=== PATIENT | female | born 2000 | race American Indian/Alaskan Native ===

== ENCOUNTER 2020-12-02 13:44 | Outpatient (CLI) | payer OTHER ==
[2020-12-02] MEDS ORDERED: LACTATED RINGERS 1,000 ML IV ONE (14:35)
[2020-12-02 15:05] LABS: Bacteria,Urine 3+ /HPF (Negative); Bilirubin,Urine NEG (Negative); Blood,Urine NEG (Negative); Color,Urine Yellow (Yellow); Protein,Urine <15 mg/dL mg/dL (Negative); Urobilinogen,Urine < 2.0 mg/dL (<2.0)
[2020-12-02 15:24] LABS: Alanine Aminotransferase 12 units/L (7-56); Uric Acid 2.9 mg/dL (3.5-7.6)
[2020-12-02 15:31] LABS: Hematocrit 32.5 % (30.3-42.9); Hemoglobin 11.2 gm/dl (10.1-14.3); Mean Corpuscular HGB Conc 35 % (30-34); Mean Corpuscular Volume 87 fl (79-97); Platelet Count 272 K/mm3 (140-440); Red Blood Count 3.72 M/mm3 (3.65-5.03); Red Cell Distribution Width 14.3 % (13.2-15.2)
[2020-12-02 16:32] VITALS: BP 148/67
--- NOTE | 2020-12-03 06:04 | Event Note ---
Date: 12/02/20 (late entry) Pt presented with c/o just feeling off. 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 She states she just felt "off" @ work. VSS No evidence UTI Prolong monitoring Cat 1 strip No ctx. Spoke with pt for extended time about healthy work habits: getting up Q2h, voiding, walk around, have water. Pt voiced understanding. She did not voice stopping work. Pt has an appt in our office Tuesday for routine OB visit. All concerns addressed. Pt d/c home in good condition.
== END 2020-12-02 17:00 | disposition home or self-care (01) ==
LOC: TRG 13:44 → APU 13:44 → TRG 17:00
PROVIDERS: ATTEND Obstetrics & Gynecology
DX: O26.893 Other specified pregnancy related conditions, third trimester (principal); R42 Dizziness and giddiness; R10.9 Unspecified abdominal pain; Z3A.31 31 weeks gestation of pregnancy
CPT/HCPCS: 36415; 59025; 81001; 82565; 83615; 84450; 84460; 84550; 85027; 87086

== ENCOUNTER 2021-01-04 21:12 | Outpatient (CLI) | payer OTHER ==
[2021-01-04 21:38] VITALS: BP 130/62
[2021-01-04] MEDS ORDERED: LACTATED RINGERS 500 ML IV ONE (21:42)
== END 2021-01-04 22:42 | disposition home or self-care (01) ==
LOC: TRG 21:12 → APU 21:23 → TRG 22:42
PROVIDERS: ATTEND Obstetrics & Gynecology
DX: O42.913 Preterm premature rupture of membranes, unspecified as to length of time between rupture and onset of labor, third trimester (principal); Z3A.36 36 weeks gestation of pregnancy
CPT/HCPCS: 36415; 59025; 84112

== ENCOUNTER 2021-01-26 00:41 | Outpatient (CLI) | payer OTHER | END 2021-01-26 02:20 | disposition home or self-care (01) | LOC: TRG 00:41 → APU 00:59 | CPT/HCPCS: 59025; 71045 ==